=== PATIENT | female | born 1995 | race Caucasian/White ===

== ENCOUNTER → 2017-05-11 | Emergency (ER) | payer OTHER ==
[~2017-05-11] VITALS: Ht 162.6 cm; Wt 97.1 kg
[~2017-05-11] MED LIST: PRENATAL TABLE1 EAC1; [UNRECOGNIZED DRUG - OTHER]
== END | disposition home or self-care (01) ==
LOC: ER 16:11 → EDSEX 16:11 → ER 16:59
DX: N93.8 Other specified abnormal uterine and vaginal bleeding (principal); R31.9 Hematuria, unspecified